=== PATIENT | male | born 1940 | race Native Hawaiian/Other Pacific Islander ===

== ENCOUNTER 2016-10-12 10:57 | Day surgery (SDC) | payer MEDICARE, MEDICAID ==
[2016-10-12 11:32] VITALS: BMI 26.4
--- NOTE | 2016-10-12 11:49 | CP.SDSHP ---
Same Day Surgery H & P - History Proposed Procedure: colonoscopy - Previous Medical/Surgical History Cardiac: Hypertension - Allergies Allergies: Allergies No Known Allergies Allergy (Unverified 12/30/13 14:30) - Date & Time Date: 10/12/16 Time: 11:48 Short Stay Discharge - Short Stay Discharge Admitting Diagnosis/Reason for Visit: SCREENING FOR MALIGNANT NEOPLASM OF COLON Disposition: HOME/ ROUTINE
[2016-10-12] MEDS ORDERED: Propofol 10 mg/ml Inj (20 ML) ONE ×2 (12:13→12:32)
[2016-10-12 13:00] VITALS: TEMP 97.1
[2016-10-12 14:04] VITALS: RESP 12; O2SAT 100
[2016-10-12 14:07] VITALS: BP 122/77; PULSE 78
== END 2016-10-12 13:50 | disposition home or self-care (01) ==
LOC: C.ENDO 10:57
PROVIDERS: ATTEND Colon & Rectal Surgery
DX: Z12.11 Encounter for screening for malignant neoplasm of colon (principal); K62.1 Rectal polyp; K57.30 Diverticulosis of large intestine without perforation or abscess without bleeding; K64.8 Other hemorrhoids
CPT/HCPCS: 45388; 88305; J2704; J3010

== ENCOUNTER 2016-10-16 18:37 | Emergency (ER) | payer MEDICARE, MEDICAID ==
[2016-10-16 18:37] VITALS: BMI 26.4
[2016-10-16 18:55] VITALS: TEMP 98.2
--- NOTE | 2016-10-16 19:30 | C.PDOC ---
History Of Present Illness 76 y/o male presents to the ED with complains of bilateral leg weakness since yesterday with associated lightheadedness and sensation of abdominal fullness after eating. Pt has history of chronic constipation, last BM was today. Pt is s /p colonoscopy 4 days ago. He denies chest pain, SOB, abdominal pain, fever, headache, visual changes, slurred speech, facial droop. Time Seen by Provider: 10/16/16 19:18 Chief Complaint (Nursing): Abdominal Pain History Per: Patient, Family History/Exam Limitations: no limitations Onset/Duration Of Symptoms: Hrs Current Symptoms Are (Timing): Still Present Severity: Moderate Associated Symptoms: denies: Fever, Chest Pain Exacerbating Factors: None Last Bowel Movement: Today Past Medical History Reviewed: Historical Data, Nursing Documentation, Vital Signs Vital Signs: Last Vital Signs Temp 98.2 F 10/16/16 18:51 Pulse 73 10/16/16 23:21 Resp 16 10/16/16 23:21 BP 148/74 10/16/16 23:21 Pulse Ox 100 10/16/16 23:21 - Medical History PMH: HTN, Hyperlipidemia Surgical History: Endoscopy Family History: States: Other (noncontributory) - Social History Hx Alcohol Use: No Hx Substance Use: No - Immunization History Hx Tetanus Toxoid Vaccination: No Hx Influenza Vaccination: Yes Hx Pneumococcal Vaccination: Yes Review Of Systems Except As Marked, All Systems Reviewed And Found Negative. Constitutional: Negative for: Fever Eyes: Negative for: Vision Change Cardiovascular: Negative for: Chest Pain, Palpitations Respiratory: Negative for: Cough, Shortness of Breath Gastrointestinal: Positive for: Other (sensation of abdominal fullness). Negative for: Nausea, Vomiting, Abdominal Pain, Diarrhea Neurological: Positive for: Weakness (bilateral leg), Other (lightheadedness). Negative for: Numbness, Change in Speech, Headache Physical Exam - Physical Exam Appears: Well, Non-toxic, No Acute Distress Skin: Warm, Dry, No Rash Head: Atraumatic, Normacephalic Eye(s): bilateral: Normal Inspection, PERRL, EOMI Oral Mucosa: Moist Cardiovascular: Rhythm Regular Respiratory: Normal Breath Sounds, No Rales, No Rhonchi, No Wheezing Gastrointestinal/Abdominal: Normal Exam, Bowel Sounds, Soft, No Tenderness, No Guarding, No Rebound Extremity: Normal ROM, No Pedal Edema, No Calf Tenderness Extremity: Bilateral: Atraumatic Neurological/Psych: Oriented x3, Normal Speech, Normal Cognition, Normal Cranial Nerves, No Cerebellar Signs, Normal Motor, Normal Sensation ED Course And Treatment - Laboratory Results Result Diagrams: 10/16/16 19:49 10/16/16 19:49 ECG: Interpreted By Me, Viewed By Me (NSR 61 BPM, normal axis, no acute ST/T wave changes) ECG Interpretation: Normal O2 Sat by Pulse Oximetry: 99 (RA) Pulse Ox Interpretation: Normal - Other Rad CXR X-Ray: Viewed By Me, Read By Radiologist Interpretation: Accession No. : [id number]. Patient Name / ID : JOSELINE Hsu / [id number]. Exam Date : 10/16/2016 21:43:30 ( Approved ). Study Comment : Sex / Age : M / 76Y. Creator : Jabier Jimenez MD. Dictator : Jabier iJmenez MD. Wood Borer : Platform Loader : Jabier Jimenez MD. Approver2 : Report Date : 06/2017 08:41:06. My Comment : . PROCEDURE: CHEST RADIOGRAPH, 1 VIEW. HISTORY: WEAKNESS. COMPARISON: None available. FINDINGS: LUNGS: No focal infiltrate or effusion. Curvilinear tubing projects over the right supraclavicle soft tissues. Clinical correlation. PLEURA: No pneumothorax or pleural fluid seen. CARDIOVASCULAR: Calcification at the aortic knob. OSSEOUS STRUCTURES: No significant abnormalities. VISUALIZED UPPER ABDOMEN: Normal. OTHER FINDINGS: None. IMPRESSION: No active disease. - CT Scan/US ct scan abd/pelvis Other Rad Studies (CT/US): Read By Radiologist, Radiology Report Reviewed CT/US Interpretation: Accession No. : [id number]. Patient Name / ID : JOSELINE Hsu / [id number]. Exam Date : 10/16/2016 22:11:06 ( Approved ). Study Comment : Sex / Age : M / 76Y. Creator : Kiki Leonard MD. Dictator : Wood Borer : Platform Loader : Kiki Leonard MD. Approver2 : Report Date : 10/16/2016 23:12:00. My Comment : . [facility]. [address] [place] [address]. Tel. no. . . . Patient Name: VANI TREVIZO . Pt. Address: [address] [place] [address]. Rec #: [id number]. [place] [address]: Rocio Hamm DO Pt Order Location: [facility] : 1940 Male Age: 76 Order #: [id number]. Accession # : [id number]. Reason for exam: ABDOMINAL PAIN. . . . . . CT Scan. . . ABD PELVIS W/O PO OR IV CONT Exam Date: 05/24. . This imaging exam was performed at [facility]. . . EXAM: CT Abdomen and Pelvis Without Intravenous Contrast. . CLINICAL HISTORY: 76 years old, male; Pain; Abdominal pain; Generalized. . TECHNIQUE: Axial computed tomography images of the abdomen and pelvis without. intravenous contrast. This CT exam was performed using one or more of the. following dose reduction techniques: automated exposure control, adjustment of. the mA and/ or kV according to patient size, and/or use of iterative. reconstruction technique. Coronal and sagittal reformatted images were created and reviewed. . EXAM DATE/TIME: 10/16/2016 9:22 PM. . COMPARISON: No relevant prior studies available. . FINDINGS: LOWER THORAX: No infiltrate seen in the lung bases. . ABDOMEN: LIVER: No acute abnormality of the liver identified. GALLBLADDER AND BILE DUCTS: No CT evidence of acute cholecystitis. No. evidence of significant biliary ductal dilatation. PANCREAS: No CT evidence of acute pancreatitis. SPLEEN: No acute abnormality of the spleen identified. ADRENALS: No acute abnormality of the adrenal glands identified. KIDNEYS AND URETERS: No acute abnormality of the kidneys seen. No evidence. of hydroureteronephrosis. STOMACH AND BOWEL: Scattered colonic diverticulosis, without evidence of. diverticulitis. Otherwise, no significant abnormality of the bowel is. identified. No acute abnormality of the stomach or duodenum identified. No. evidence of small bowel obstruction. APPENDIX: Appendix is seen, and is within normal limits in appearance. . PELVIS: BLADDER: Mild thickening of the bladder wall. REPRODUCTIVE: Prostate gland is mildly enlarged. . ABDOMEN and PELVIS: INTRAPERITONEAL SPACE: No evidence of free intraperitoneal air or fluid. BONES/JOINTS: Bony structures appear demineralized. SOFT TISSUES: Postoperative changes involving the periumbilical soft tissues. VASCULATURE: No evidence of abdominal aortic aneurysm. No evidence of. periaortic hemorrhage. LYMPH NODES: No evidence of diffuse lymphadenopathy. . IMPRESSION: - Mild bladder wall thickening. This is a nonspecific finding, but can be seen. with cystitis. Recommend clinical correlation. - Otherwise, no evidence of significant acute process on this unenhanced exam. - See above for remaining findings. . Dictated By: Kiki Leonard MD. Dictated Date/Time: 10/16/162311. Signed By: Kiki Leonard MD. Date Signed: 10/16/162311. Transcribed By: [facility]. Transcribe Date/Time : 10/16/162311. RM02/MT Progress Note: Plan: Blood work, CT abd/pelvis, EKG, UA ordered and reviewed. Reevaluation Time: 23:15 Reassessment Condition: Improved (Patient reassessed, currently resting comfortably, in no pain/distress. All studies are WNL, and patient is well appearing, asymptomatic, and would like to be discharged home. Discussed patient with Dr. Gauthier, he agrees with discharge home. Patient instructed to follow up with Dr. Gauthier in 1-2 days. Patient understands he should return to ED if symptoms worsen.) Disposition Counseled Patient/Family Regarding: Studies Performed, Diagnosis, Need For Followup - Disposition Referrals: Rah Gauthier MD [Staff Provider] - Disposition: HOME/ ROUTINE Disposition Time: 23:15 Condition: STABLE Additional Instructions: FOLLOW UP WITH YOUR DOCTOR IN 1-2 DAYS RETURN TO ER IF YOU HAVE ANY CONCERNING SYMPTOMS Forms: General Discharge Instructions Print Language: IRISH - POA Present On Arrival: None - Clinical Impression Clinical Impression: Leg weakness, Abdominal distension - Scribe Statement The provider has reviewed the documentation as recorded by the Scribe David Tarango Provider Attestation: All medical record entries made by the Merlyibe were at my direction and personally dictated by me. I have reviewed the chart and agree that the record accurately reflects my personal performance of the history, physical exam, medical decision making, and the department course for this patient. I have also personally directed, reviewed, and agree with the discharge instructions and disposition.
[2016-10-16 19:51] LABS: BASO % 0.7 % (0.0-2.0); EOS # 0.3 K/uL (0.0-0.7); EOS % 5.4 % (0.0-4.0); LYMPH # 1.4 K/uL (1.0-4.3); LYMPH % 22.3 % (20.0-40.0); MEAN CELL VOLUME 90.8 fL (80.0-94.0); MEAN CORPUSCULAR HEMOGLOBIN 29.9 pg (27.0-31.0); MEAN CORPUSCULAR HGB CONC 32.9 g/dL (33.0-37.0); MONO # 0.6 K/uL (0.0-0.8); MONO % 9.7 % (0.0-10.0); NRBC % 0.1 % (0.0-2.0); RED CELL DISTRIBUTION WIDTH 13.6 % (11.5-14.5); WHITE BLOOD COUNT 6.1 K/uL (4.8-10.8)
[2016-10-16 19:51] LABS: RBC URINE < 1 /hpf (0-3); URINE BILIRUBIN NEGATIVE (NEGATIVE); URINE BLOOD NEGATIVE (NEGATIVE); URINE COLOR Yellow (YELLOW); URINE GLUCOSE (UA) NORMAL (Normal); URINE KETONE NEGATIVE (NEGATIVE); URINE LEUKOCYTE ESTERASE NEG Leu/uL (Negative); URINE PROTEIN NEGATIVE (NEGATIVE); URINE UROBILINOGEN NORMAL mg/dL (0.2-1.0); WBC URINE < 1 /hpf (0-5)
[2016-10-16 20:03] LABS: CHLORIDE 97 mmol/L (98-107)
[2016-10-16 20:04] LABS: POTASSIUM 4.3 mmol/L (3.6-5.2); SODIUM 137 mmol/L (132-148)
[2016-10-16 20:06] LABS: ALB/GLOB RATIO 1.6 (1.0-2.1); ALKALINE PHOSPHATASE 43 U/L (38-126); AST/SGOT 21 U/L (17-59); BILIRUBIN,TOTAL 0.3 mg/dL (0.2-1.3); BLOOD UREA NITROGEN 9 mg/dL (9-20); CARBON DIOXIDE 27 mmol/L (22-30); GFR AFRICAN-AMERICAN > 60; TOTAL PROTEIN 6.6 g/dL (6.3-8.3)
[2016-10-16 20:07] LABS: ALT/SGPT 21 U/L (21-72); CALCIUM 8.6 mg/dl (8.6-10.4); GLUCOSE,RANDOM 105 mg/dL (75-110)
--- NOTE | 2016-10-16 23:12 | CT ---
EXAM: CT Abdomen and Pelvis Without Intravenous Contrast CLINICAL HISTORY: 76 years old, male; Pain; Abdominal pain; Generalized TECHNIQUE: Axial computed tomography images of the abdomen and pelvis without intravenous contrast. This CT exam was performed using one or more of the following dose reduction techniques: automated exposure control, adjustment of the mA and/or kV according to patient size, and/or use of iterative reconstruction technique. Coronal and sagittal reformatted images were created and reviewed. EXAM DATE/TIME: 10/16/2016 9:22 PM COMPARISON: No relevant prior studies available. FINDINGS: LOWER THORAX: No infiltrate seen in the lung bases. ABDOMEN: LIVER: No acute abnormality of the liver identified. GALLBLADDER AND BILE DUCTS: No CT evidence of acute cholecystitis. No evidence of significant biliary ductal dilatation. PANCREAS: No CT evidence of acute pancreatitis. SPLEEN: No acute abnormality of the spleen identified. ADRENALS: No acute abnormality of the adrenal glands identified. KIDNEYS AND URETERS: No acute abnormality of the kidneys seen. No evidence of hydroureteronephrosis. STOMACH AND BOWEL: Scattered colonic diverticulosis, without evidence of diverticulitis. Otherwise, no significant abnormality of the bowel is identified. No acute abnormality of the stomach or duodenum identified. No evidence of small bowel obstruction. APPENDIX: Appendix is seen, and is within normal limits in appearance. PELVIS: BLADDER: Mild thickening of the bladder wall. REPRODUCTIVE: Prostate gland is mildly enlarged. ABDOMEN and PELVIS: INTRAPERITONEAL SPACE: No evidence of free intraperitoneal air or fluid. BONES/JOINTS: Bony structures appear demineralized. SOFT TISSUES: Postoperative changes involving the periumbilical soft tissues. VASCULATURE: No evidence of abdominal aortic aneurysm. No evidence of periaortic hemorrhage. LYMPH NODES: No evidence of diffuse lymphadenopathy. IMPRESSION: - Mild bladder wall thickening. This is a nonspecific finding, but can be seen with cystitis. Recommend clinical correlation. - Otherwise, no evidence of significant acute process on this unenhanced exam. - See above for remaining findings.
[2016-10-16 23:22] VITALS: BP 148/74; PULSE 73; RESP 16
--- NOTE | 2016-10-17 08:42 | RAD ---
PROCEDURE: CHEST RADIOGRAPH, 1 VIEW HISTORY: WEAKNESS COMPARISON: None available. FINDINGS: LUNGS: No focal infiltrate or effusion. Curvilinear tubing projects over the right supraclavicle soft tissues. Clinical correlation. PLEURA: No pneumothorax or pleural fluid seen. CARDIOVASCULAR: Calcification at the aortic knob. OSSEOUS STRUCTURES: No significant abnormalities. VISUALIZED UPPER ABDOMEN: Normal. OTHER FINDINGS: None. IMPRESSION: No active disease.
--- NOTE | 2016-10-17 14:43 | CARD ---
APPROVED REPORT EKG Measurement Heart [id number] <Conclusion> Normal sinus rhythm Normal ECG
[2016-10-23 07:37] VITALS: O2SAT 99
== END 2016-10-16 23:41 | disposition home or self-care (01) ==
LOC: C.ER 18:37
DX: R14.0 Abdominal distension (gaseous) (principal); R53.1 Weakness

== ENCOUNTER 2017-03-04 11:18 | Inpatient (IN) | payer MEDICARE, MEDICAID ==
[2017-03-04 11:18] VITALS: BMI 26.4
[2017-03-04 12:53] LABS: BASO # 0.1 K/uL (0.0-0.2); EOS # 0.1 K/uL (0.0-0.7); EOS % 1.5 % (0.0-4.0); HEMATOCRIT 47.2 % (35.0-51.0); LYMPH # 1.3 K/uL (1.0-4.3); LYMPH % 18.8 % (20.0-40.0); MEAN CELL VOLUME 90.8 fL (80.0-94.0); MEAN CORPUSCULAR HEMOGLOBIN 30.1 pg (27.0-31.0); MEAN CORPUSCULAR HGB CONC 33.1 g/dL (33.0-37.0); MONO # 0.5 K/uL (0.0-0.8); MONO % 6.3 % (0.0-10.0); NRBC % 0.1 % (0.0-2.0); RED CELL DISTRIBUTION WIDTH 13.6 % (11.5-14.5); WHITE BLOOD COUNT 7.2 K/uL (4.8-10.8)
[2017-03-04 13:03] LABS: CHLORIDE 96 mmol/L (98-107); URINE BILIRUBIN NEGATIVE (NEGATIVE); URINE BLOOD NEGATIVE (NEGATIVE); URINE COLOR Yellow (YELLOW); URINE GLUCOSE (UA) NORMAL (Normal); URINE KETONE NEGATIVE (NEGATIVE); URINE LEUKOCYTE ESTERASE NEG Leu/uL (Negative); URINE PROTEIN NEGATIVE (NEGATIVE); URINE UROBILINOGEN NORMAL mg/dL (0.2-1.0); WBC URINE 1 /hpf (0-5)
[2017-03-04 13:04] LABS: POTASSIUM 4.2 mmol/L (3.6-5.2); SODIUM 137 mmol/L (132-148)
[2017-03-04 13:06] LABS: ALB/GLOB RATIO 1.3 (1.0-2.1); ALKALINE PHOSPHATASE 60 U/L (38-126); ALT/SGPT 29 U/L (21-72); AST/SGOT 23 U/L (17-59); BILIRUBIN,TOTAL 0.7 mg/dL (0.2-1.3); BLOOD UREA NITROGEN 9 mg/dL (9-20); CARBON DIOXIDE 25 mmol/L (22-30); GFR AFRICAN-AMERICAN > 60; INR 0.9; TOTAL PROTEIN 7.4 g/dL (6.3-8.3)
[2017-03-04 13:07] LABS: GLUCOSE,RANDOM 125 mg/dL (75-110)
--- NOTE | 2017-03-04 13:16 | RAD ---
PROCEDURE: Radiographs of the Right Shoulder HISTORY: right shoulder pain COMPARISON: No prior. FINDINGS: BONES: Normal. No fracture. 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 There also appears to be small amount of vacuum phenomena within the left AC joint. SOFT TISSUES: No definitive abnormal soft tissue calcifications. OTHER FINDINGS: Mild multilevel degenerative spondylosis of the thoracic spine. IMPRESSION: No evidence of acute displaced fracture nor dislocation. Mild DJD left acromioclavicular joint; rule out impingement syndrome.
--- NOTE | 2017-03-04 14:40 | RAD ---
PROCEDURE: CHEST RADIOGRAPH, 1 VIEW HISTORY: weakness COMPARISON: 10/16/2016 FINDINGS: LUNGS: Clear. PLEURA: No pneumothorax or pleural fluid seen. CARDIOVASCULAR: Normal. OSSEOUS STRUCTURES: No significant abnormalities. VISUALIZED UPPER ABDOMEN: Normal. OTHER FINDINGS: None. IMPRESSION: No active disease.
--- NOTE | 2017-03-04 15:44 | CT ---
PROCEDURE: CT HEAD WITHOUT CONTRAST. HISTORY: dizziness, leg weakness COMPARISON: None available. TECHNIQUE: Axial computed tomography images were obtained through the head/brain without intravenous contrast. Radiation dose: Total exam DLP = 981.84 mGy-cm. This CT exam was performed using one or more of the following dose reduction techniques: Automated exposure control, adjustment of the mA and/or kV according to patient size, and/or use of iterative reconstruction technique. FINDINGS: HEMORRHAGE: No intracranial hemorrhage. BRAIN: No mass effect or edema. Mild age-appropriate diffuse atrophy. Focal low-attenuation adjacent to frontal horn right lateral ventricle likely chronic ischemic change. No evidence of acute infarct. VENTRICLES: Unremarkable. No hydrocephalus. CALVARIUM: Unremarkable. PARANASAL SINUSES: Unremarkable as visualized. No significant inflammatory changes. MASTOID AIR CELLS: Unremarkable as visualized. No inflammatory changes. OTHER FINDINGS: None. IMPRESSION: No intracranial mass, hemorrhage or evidence of acute infarct. Atrophy and chronic white matter ischemic change.
--- NOTE | 2017-03-04 15:57 | C.PDOC ---
History Of Present Illness 76 year old male presents to the ED for evaluation of right shoulder pain exacerbated by movement that is radiating to the right arm for one week. Patient was sent by Dr. Gauthier after visiting today, states he has been feeling lightheaded and with weakness in bilateral legs over the last 1 week. He has also had several episodes of near syncope. He denies chest pain, shortness of breath, nausea, vomiting, diarrhea, visual changes, facial droop, slurred speech, abdominal pain, sensory changes. Time Seen by Provider: 03/04/17 12:11 Chief Complaint (Nursing): Syncope History Per: Patient History/Exam Limitations: no limitations Onset/Duration Of Symptoms: Days (1 week ) Current Symptoms Are (Timing): Still Present Seizure Or Post-ictal Symptoms: None Fall Associated With With Symptoms: No Recent travel outside of the [place]: No Additional History Per: Prior Records (PMD Dr. Gauthier ) Past Medical History Reviewed: Historical Data, Nursing Documentation, Vital Signs Vital Signs: Last Vital Signs Temp 97.8 F 03/06/17 15:55 Pulse 65 03/06/17 15:55 Resp 18 03/06/17 15:55 BP 130/78 03/06/17 15:55 Pulse Ox 99 03/06/17 15:55 - Medical History PMH: HTN, Hyperlipidemia Surgical History: Endoscopy Family History: States: No Known Family Hx - Social History Hx Alcohol Use: No Hx Substance Use: No - Immunization History Hx Tetanus Toxoid Vaccination: No Hx Influenza Vaccination: No Hx Pneumococcal Vaccination: No Review Of Systems Except As Marked, All Systems Reviewed And Found Negative. Constitutional: Negative for: Fever, Chills Cardiovascular: Negative for: Chest Pain, Palpitations Respiratory: Negative for: Cough, Shortness of Breath Gastrointestinal: Negative for: Nausea, Vomiting, Abdominal Pain, Diarrhea Musculoskeletal: Positive for: Shoulder Pain (right), Arm Pain (right arm pain radiating from right shoulder ), Leg Pain (bilateral leg weakness occasionally ) Neurological: Positive for: Other (lightheadedness ). Negative for: Weakness, Numbness Physical Exam - Physical Exam Appears: Well, Non-toxic, No Acute Distress, Other (comfortable ) Skin: Normal Color, Warm, Dry, No Rash Head: Atraumatic, Normacephalic Eye(s): bilateral: Normal Inspection (no nystagmus ), PERRL, EOMI Oral Mucosa: Moist Neck: Supple Cardiovascular: Rhythm Regular Respiratory: Normal Breath Sounds, No Rales, No Rhonchi, No Wheezing Gastrointestinal/Abdominal: Normal Exam, Bowel Sounds, Soft, No Tenderness Extremity: No Normal ROM (decreased ROM secondary to pain), Tenderness ( tenderness to palpation at right posterior shoulder. ), No Pedal Edema, No Calf Tenderness, Capillary Refill (< 2 sec all digits ), No Deformity, No Swelling, Other (5/5 motor strength in all extremities ) Extremity: Bilateral: Normal Color And Temperature, Normal ROM Pulses: Left Radial: Normal, Right Radial: Normal, Left Dorsalis Pedis: Normal, Right Dorsalis Pedis: Normal Neurological/Psych: Oriented x3, Normal Speech, Normal Cognition, Normal Cranial Nerves, No Cerebellar Signs, Normal Motor, Normal Sensation, No Dysarthria, No Romberg ED Course And Treatment - Laboratory Results Result Diagrams: 03/04/17 12:50 03/04/17 12:50 ECG: Interpreted By Me, Viewed By Me ECG Rhythm: Sinus Rhythm ECG Interpretation: No Acute Changes Interpretation Of ECG: First degree AV block, normal axis, no acute ST/T wave changes. Rate From EC (bpm) O2 Sat by Pulse Oximetry: 99 (room air ) Pulse Ox Interpretation: Normal - Radiology CXR: Viewed By Me, Read By Radiologist CXR Interpretation: Yes: No Acute Disease - Other Rad Right Shoulder X-Ray X-Ray: Viewed By Me, Read By Radiologist Interpretation: FINDINGS: BONES: Normal. No fracture. 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 There also appears to be small amount of vacuum phenomena within the left AC joint. SOFT TISSUES: No definitive abnormal soft tissue calcifications. OTHER FINDINGS: Mild multilevel degenerative spondylosis of the thoracic spine. IMPRESSION: No evidence of acute displaced fracture nor dislocation. Mild DJD left acromioclavicular joint; rule out impingement syndrome. - CT Scan/US CT HEAD Other Rad Studies (CT/US): Read By Radiologist, Radiology Report Reviewed CT/US Interpretation: Accession No. : [id number]. Patient Name / ID : JOSELINE Hsu / [id number]. Exam Date : 03/04/2017 15:13:02 ( Approved ). Study Comment : Sex / Age : M / 76Y. Creator : CR MARIN MD. Dictator : CR MARIN MD. Cell Attendant Helper : Rn Gyn : CR MARIN MD. Approver2 : Report Date : 03/04/2017 15:42:33. My Comment : . PROCEDURE: CT HEAD WITHOUT CONTRAST. HISTORY: dizziness, leg weakness. COMPARISON: None available. TECHNIQUE: Axial computed tomography images were obtained through the head/brain without intravenous contrast. Radiation dose: Total exam DLP = 981.84 mGy-cm. This CT exam was performed using one or more of the following dose reduction techniques: Automated exposure control, adjustment of the mA and/or kV according to patient size, and/or use of iterative reconstruction technique. FINDINGS: HEMORRHAGE: No intracranial hemorrhage. BRAIN: No mass effect or edema. Mild age-appropriate diffuse atrophy. Focal low-attenuation adjacent to frontal horn right lateral ventricle likely chronic ischemic change. No evidence of acute infarct. VENTRICLES: Unremarkable. No hydrocephalus. CALVARIUM: Unremarkable. PARANASAL SINUSES: Unremarkable as visualized. No significant inflammatory changes. MASTOID AIR CELLS: Unremarkable as visualized. No inflammatory changes. OTHER FINDINGS: None. IMPRESSION: No intracranial mass, hemorrhage or evidence of acute infarct. Atrophy and chronic white matter ischemic change. Progress Note: Blood work, EKG, CT head ordered and reviewed. Patient given PO Naprosyn, Flexeril for shoulder pain. - Physician Consult Information Physician Contacted: Rah Gauthier Outcome Of Conversation: Discussed patient with PMD Dr. gauthier, he would like patient to be observation telemetry Disposition - Disposition Disposition: HOSPITALIZED Disposition Time: 14:55 Condition: STABLE - Clinical Impression Clinical Impression: Right shoulder pain, Leg weakness, Near syncope, Dizziness, Lightheaded - Scribe Statement The provider has reviewed the documentation as recorded by the Scribchan Anna All medical record entries made by the Scribe were at my direction and personally dictated by me. I have reviewed the chart and agree that the record accurately reflects my personal performance of the history, physical exam, medical decision making, and the department course for this patient. I have also personally directed, reviewed, and agree with the discharge instructions and disposition. Decision To Admit - Pt Status Changed To: Hospital Disposition Of: Observation - . Bed Request Type: Telemetry Admitting Physician: Rah Gauthier Patient Diagnosis: Near syncope, Dizziness, Leg weakness, Right shoulder pain
[2017-03-04] MEDS ORDERED: Naproxen 550 mg Tab PO STA (17:03)
[2017-03-04] MEDS ORDERED: Naproxen 550 mg Tab PO ONE (17:10)
[2017-03-04] MEDS: Simethicone 80 mg Chewtab PO SCH (19:27)
--- NOTE | 2017-03-05 09:02 | MRI ---
PROCEDURE: MRI BRAIN WITHOUT CONTRAST HISTORY: DIZZINESS` COMPARISON: Comparison is made to the previous CT dated 03/04/2017. TECHNIQUE: Multiplanar, multisequence MR images of the brain were obtained without intravenous contrast enhancement. FINDINGS: HEMORRHAGE: None DWI: No evidence of an acute or early subacute infarction. BRAIN PARENCHYMA: No mass effect or edema. There are mild white matter changes suggestive but nonspecific for chronic microvascular ischemic disease. There is [id number] atrophy. VENTRICLES: Mildly dilated lateral ventricles posteriorly. CRANIUM: Unremarkable. ORBITS: Grossly unremarkable. PARANASAL SINUSES/MASTOIDS: Clear VASCULAR SYSTEM: Skull base flow voids intact. OTHER FINDINGS: None. IMPRESSION: O evidence of acute or subacute infarction. No evidence of mass lesion mass effect or midline shift. Mild white matter changes suggestive but nonspecific for chronic microvascular ischemic disease. Dilated posterior horn of the lateral ventricles could be due to central atrophy. Preliminary report was submitted by [facility].
[2017-03-05] MEDS: Pantoprazole 40 mg EC Tab PO SCH (10:21)
[2017-03-05] MEDS: Simethicone 80 mg Chewtab PO SCH ×3 (10:21→18:29)
[2017-03-05] MEDS: Multivitamin With Minerals Tab PO SCH (10:21)
[2017-03-05] MEDS: Enoxaparin 40 mg Syringe SC SCH (10:21)
--- NOTE | 2017-03-05 17:57 | CARD ---
APPROVED REPORT EXAM: Two-dimensional and M-mode echocardiogram with Doppler and color Doppler. Other Information Quality : GoodRhythm : NSR INDICATION Dizziness and Vertigo Syncope RISK FACTORS Hypertension Hyperlipidemia 2D DIMENSIONS IVSd1.3 (0.7-1.1cm)LVDd3.4 (3.9-5.9cm) PWd1.3 (0.7-1.1cm)LVDs2.5 (2.5-4.0cm) FS (%) 26.3 %LVEF (%)59.0 (>50%) M-Mode DIMENSIONS Left Atrium (MM)3.55 (2.5-4.0cm)Aortic Root4.17 (2.2-3.7cm) Aortic Cusp Exc.2.71 (1.5-2.0cm) Aortic Valve AI P 1/2 [id number] Mitral Valve MV E Zjaclbwa31.5cm/sMV A Rmmnjqny05.4cm/sE/A ratio0.7 TDI E/Lateral E'0.0E/Medial E'0.0 Tricuspid Valve TR Peak Bdcjuany919nh/sTR Peak Gr.47haSaZLWG84bzSn LEFT VENTRICLE The left ventricle is normal size. There is normal left ventricular wall thickness. The left ventricular function is normal. The left ventricular ejection fraction is within the normal range. There is normal LV segmental wall motion. Transmitral Doppler flow pattern is abnormal. RIGHT VENTRICLE The right ventricle is normal size. ATRIA The left atrium size is normal. The right atrium size is normal. AORTIC VALVE There is trace to mild aortic regurgitation. MITRAL VALVE The mitral valve is normal in structure. TRICUSPID VALVE There is mild tricuspid regurgitation. <Conclusion> Normal LV systolic function. Diastolic dysfunction. Trace to mild AR. Mild TR.
[2017-03-05] MEDS ORDERED: Rosuvastatin Calcium 2.5 mg Tab PO SCH (22:00)
--- NOTE | 2017-03-06 02:54 | HP ---
CHIEF COMPLAINT: Dizziness and weakness. HISTORY OF PRESENT ILLNESS: This is 76-year-old [place] male with history of hypertension, hyperlipidemia, osteoarthritis, anxiety and in his usual state of health, he is ambulatory, independent in activities of daily living. He is compliant with his thyroid medication and followup. He has multiple joint pains in multiple parts of the body including shoulder, hip, knee. Yesterday, he came to my office and I referred him to emergency room. He was complaining of lightheadedness, weakness, bilateral lower extremity, which has been there since one week and that has been getting worse. He is unsteady. He feels dizzy. He is having hard time maintaining balance. He denies any chest pain, palpitation. He denies any . He denies any history of shortness of breath, dyspnea on exertion. Patient denies any nausea, vomiting, diarrhea, abdominal pain. He denies any polyuria, polydipsia. He denies any visual changes. No history of slurring of speech. No abdominal pain. There is no history of head injury, trauma, fall, loss of consciousness. He denies any history of hesitancy, urgency. PAST MEDICAL HISTORY: Hypertension, hyperlipidemia, extensive osteoarthritis. SOCIAL HISTORY: Nonsmoker, non ETOH user. CURRENT MEDICATIONS AT HOME: He is taking enalapril, simethicone, Protonix, multivitamin, Amitiza, Neurontin, Vasotec. PHYSICAL EXAMINATION: GENERAL: An elderly male in no distress. He is anxious. He is depressed. VITAL SIGNS: Blood pressure 147/86, pulse 70, respiratory rate 16, temperature 97.6. SKIN: Senile turgor. No bruises. No purpura. No petechiae. HEENT: Atraumatic and normocephalic. Negative pallor. Negative jaundice. Extraocular movements are intact. NECK: Supple. No JVD. LUNGS: Clear. No rales. No rhonchi. CARDIOVASCULAR: S1 and S2 regular. No heaves noted. ABDOMEN: Soft and nontender. Bowel sounds are positive. RECTAL: Enlarged prostate. EXTREMITIES: No clubbing, cyanosis or edema. CENTRAL NERVOUS SYSTEM: Awake, alert and oriented x3. He is moving all extremities. He is unsteady upon gait. ASSESSMENT AND PLAN: 1. Dizziness and syncope. 2. Anxiety and depression. 3. Hypertension. 4. Osteoarthritis. 5. Admit, detailed order written, seen and examined. Rah Gauthier MD
[2017-03-06] MEDS: Enoxaparin 40 mg Syringe SC SCH (09:54)
[2017-03-06] MEDS: Simethicone 80 mg Chewtab PO SCH ×3 (09:55→17:38)
[2017-03-06] MEDS: Multivitamin With Minerals Tab PO SCH (09:55)
--- NOTE | 2017-03-06 09:59 | VASCLAB ---
PROCEDURE: HISTORY: DIZZINESS` COMPARISON: None available. TECHNIQUE: Grayscale and duplex Doppler evaluation of the cervical carotid and vertebral arteries were performed. The common carotid, carotid bifurcations and cervical Internal Carotid Artery (ICA) and proximal External Carotid Artery (ECA) were evaluated. The vertebral arteries were evaluated for gross patency and flow direction. Report prepared by GUI Valencia FINDINGS: RIGHT CAROTID ARTERIES: 1. Common Carotid Artery: No significant focal plaque formation of the right common carotid artery. Maximum Peak Systolic velocity: 100 cm/sec: End-diastolic velocity 11 cm/sec. 2. Carotid Bifurcation: plaque formation. Maximum Peak Systolic velocity: 32 cm/sec: End-diastolic velocity 0 cm/sec. 3. Internal Carotid Artery: Plaque description: 3.1. Proximal Segment: Peak systolic velocity 65 cm/sec: End-diastolic velocity 18 cm/sec - % stenosis 0-15% 3.2. Middle Segment: Peak systolic velocity 72 cm/sec: End-diastolic velocity 18 cm/sec - % stenosis 0-15% 3.3. Distal Segment: Peak systolic velocity 85 cm/sec: End-diastolic velocity 22 cm/sec - % stenosis 0-15% 4. External Carotid Artery: No significant focal plaque formation. Peak systolic velocity 103 cm/sec 5. ICA/CCA Ratio: 1.2 LEFT CAROTID ARTERIES: 1. Common Carotid Artery: No significant focal plaque formation of the left common carotid artery. Maximum Peak Systolic velocity: 97 cm/sec: End-diastolic velocity 15 cm/sec. 2. Carotid Bifurcation: plaque formation. Maximum Peak Systolic velocity: 68 cm/sec: End-diastolic velocity 14 cm/sec. 3. Internal Carotid Artery: Plaque description: 3.1. Proximal Segment: Peak systolic velocity 65 cm/sec: End-diastolic velocity 21 cm/sec - % stenosis 0-15% 3.2. Middle Segment: Peak systolic velocity 79 cm/sec: End-diastolic velocity 18 cm/sec - % stenosis 0-15% 3.3. Distal Segment: Peak systolic velocity 70 cm/sec: End-diastolic velocity 26 cm/sec - % stenosis 0-15% 4. External Carotid Artery: No significant focal plaque formation. Peak systolic velocity 78 cm/sec 5. ICA/CCA Ratio: VERTEBRAL ARTERIES: 1. Right Vertebral Artery: The right vertebral artery flow direction is antegrade. 2. Left Vertebral Artery: The left vertebral artery flow direction is antegrade. OTHER FINDINGS: 1. Right Brachial Blood pressure: 105 mmHg. 2. Left Brachial Blood pressure: 100 mmHg. IMPRESSION: RIGHT: Duplex scan does not suggest hemodynamically significant stenosis of the right extracranial carotid arteries. LEFT: Duplex scan does not suggest hemodynamically significant stenosis of the left extracranial carotid arteries.
[2017-03-06] MEDS ORDERED: Pneumococcal 23-Valent Vaccine IM ONE (10:00)
[2017-03-06] MEDS: Pantoprazole 40 mg EC Tab PO SCH (10:05)
--- NOTE | 2017-03-06 11:46 | CARD ---
APPROVED REPORT EKG Measurement Heart [id number] <Conclusion> Sinus rhythm with 1st degree AV block Otherwise normal ECG
--- NOTE | 2017-03-06 15:28 | CP.PCM.PN ---
Subjective - Date & Time of Evaluation Date of Evaluation: 03/06/17 Time of Evaluation: 12:00 - Subjective Subjective: Pt seen today, denies any dizziness , head ache , chest pain, sob , c/o weakness Physical therapy seen today pt walks 200 ft without assistance, without any issues No overnight events reported by RN Objective - Vital Signs/Intake and Output Vital Signs (last 24 hours): Temp Pulse Resp BP Pulse Ox 97.9 F 70 20 148/77 96 03/06/17 08:31 03/06/17 09:53 03/06/17 08:31 03/06/17 09:54 03/06/17 08:31 Intake and Output: 03/06/17 03/06/17 06:59 18:59 Intake Total 400 Balance 400 - Medications Medications: Current Medications Enalapril Maleate (Vasotec) 10 mg PO DAILY [facility] Last Admin: 03/06/17 09:54 Dose: 10 mg Enoxaparin Sodium (Lovenox) 40 mg SC DAILY [facility] Last Admin: 03/06/17 09:54 Dose: 40 mg Gabapentin (Neurontin) 100 mg PO BID [facility] Last Admin: 03/06/17 09:55 Dose: 100 mg Magnesium Hydroxide (Milk Of Magnesia) 30 ml PO DAILY PRN PRN Reason: Constipation Multivitamins/Minerals (Therapeutic-M Tab) 1 tab PO DAILY [facility] Last Admin: 03/06/17 09:55 Dose: 1 tab Pantoprazole Sodium (Protonix Ec Tab) 40 mg PO DAILY [facility] Last Admin: 03/06/17 10:05 Dose: 40 mg Rosuvastatin Calcium (Crestor) 2.5 mg PO HS [facility] Last Admin: 03/05/17 21:24 Dose: 2.5 mg Simethicone (Mylicon Chew Tab) 80 mg PO TID [facility] Last Admin: 03/06/17 14:20 Dose: 80 mg - Labs Labs: PT 10.3 SECONDS (9.7-12.2) 03/04/17 12:50 INR 0.9 03/04/17 12:50 APTT 37 SECONDS (21-34) H 03/04/17 12:50 - Constitutional Appears: Well, No Acute Distress - Respiratory Exam Respiratory Exam: Clear to Ausculation Bilateral, NORMAL BREATHING PATTERN - Cardiovascular Exam Cardiovascular Exam: REGULAR RHYTHM, +S1, +S2 - Neurological Exam Neurological Exam: Alert, Awake, Oriented x3 Assessment and Plan - Assessment and Plan (Free Text) Assessment: A/P 76 YR OLD MALE ADMITTED FOR DIZZINESS/SYNCOPE AND WEAKNESS evidence of acute or subacute infarction. MRI head - No evidence of mass lesion mass effect or midline shift. Mild white matter changes suggestive but nonspecific for chronic microvascular ischemic disease. Dilated posterior horn of the lateral ventricles could be due to central atrophy. d/w Dr. Gauthier, stable for discharge home today and f/u with Dr. Gauthier office in 1 week discharge plan discussed with patient, who understands and agrees with plan VNA service evaluated for home physical therapy and not a candidate since pt walks independently RX given for outpt Physical therapy
[2017-03-06 16:00] VITALS: BP 130/78; PULSE 65; RESP 18; TEMP 97.8; O2SAT 99
--- NOTE | 2017-03-06 23:34 | CP.PCM.PN ---
Subjective - Date & Time of Evaluation Date of Evaluation: 03/05/17 - Subjective Subjective: feels weak, unsteady and wants RACHELL, no fever, no sob, no chest pain Objective - Vital Signs/Intake and Output Vital Signs (last 24 hours): Temp Pulse Resp BP Pulse Ox 97.8 F 65 18 130/78 99 03/06/17 15:55 03/06/17 15:55 03/06/17 15:55 03/06/17 15:55 03/06/17 15:55 Intake and Output: 03/06/17 03/07/17 18:59 06:59 Intake Total 500 Balance 500 - Labs Labs: PT 10.3 SECONDS (9.7-12.2) 03/04/17 12:50 INR 0.9 03/04/17 12:50 APTT 37 SECONDS (21-34) H 03/04/17 12:50 - Constitutional Appears: Non-toxic, No Acute Distress - Eye Exam Eye Exam: EOMI, Normal appearance, PERRL Pupil Exam: NORMAL ACCOMODATION - ENT Exam ENT Exam: Mucous Membranes Moist, Normal Exam, Normal Oropharynx, TM's Normal Bilaterally - Neck Exam Neck Exam: Normal Inspection - Cardiovascular Exam Cardiovascular Exam: REGULAR RHYTHM, +S1, +S2 - GI/Abdominal Exam GI & Abdominal Exam: Soft, Normal Bowel Sounds - Rectal Exam Rectal Exam: NORMAL INSPECTION - Extremities Exam Extremities Exam: Normal Capillary Refill, Normal Inspection - Neurological Exam Neurological Exam: Abnormal Gait, Alert, Awake, CN II-XII Intact Neuro motor strength exam: Left Upper Extremity: 5, Right Upper Extremity: 5, Left Lower Extremity: 5, Right Lower Extremity: 5 Assessment and Plan (1) Near syncope Assessment & Plan: NO CHEST PAIN, NO SOB Status: Acute (2) Hypertension Status: Chronic (3) Osteoarthritis Status: Chronic
--- NOTE | 2017-03-06 23:36 | CP.PCM.DIS ---
Provider - Provider Date of Admission: 03/05/17 14:36 Attending physician: Rah Gauthier MD Diagnosis - Discharge Diagnosis (1) Near syncope Status: Acute (2) Hypertension Status: Chronic (3) Osteoarthritis Status: Chronic Hospital Course - Lab Results Lab Results: Most Recent Lab Values WBC 7.2 K/uL (4.8-10.8) 03/04/17 12:50 RBC 5.20 Mil/uL (4.40-5.90) 03/04/17 12:50 Hgb 15.6 g/dL (12.0-18.0) 03/04/17 12:50 Hct 47.2 % (35.0-51.0) 03/04/17 12:50 MCV 90.8 fL (80.0-94.0) 03/04/17 12:50 MCH 30.1 pg (27.0-31.0) 03/04/17 12:50 MCHC 33.1 g/dL (33.0-37.0) 03/04/17 12:50 RDW 13.6 % (11.5-14.5) 03/04/17 12:50 Plt Count 235 K/uL (130-400) 03/04/17 12:50 MPV 9.0 fL (7.2-11.7) 03/04/17 12:50 Neut % (Auto) 72.4 % (50.0-75.0) 03/04/17 12:50 Lymph % (Auto) 18.8 % (20.0-40.0) L 03/04/17 12:50 [place] % (Auto) 6.3 % (0.0-10.0) 03/04/17 12:50 Eos % (Auto) 1.5 % (0.0-4.0) 03/04/17 12:50 Baso % (Auto) 1.0 % (0.0-2.0) 03/04/17 12:50 Neut # 5.2 K/uL (1.8-7.0) 03/04/17 12:50 Lymph # 1.3 K/uL (1.0-4.3) 03/04/17 12:50 [place] # 0.5 K/uL (0.0-0.8) 03/04/17 12:50 Eos # 0.1 K/uL (0.0-0.7) 03/04/17 12:50 Baso # 0.1 K/uL (0.0-0.2) 03/04/17 12:50 PT 10.3 SECONDS (9.7-12.2) 03/04/17 12:50 INR 0.9 03/04/17 12:50 APTT 37 SECONDS (21-34) H 03/04/17 12:50 Sodium 137 mmol/L (132-148) 03/04/17 12:50 Potassium 4.2 mmol/L (3.6-5.2) 03/04/17 12:50 Chloride 96 mmol/L (98-107) L 03/04/17 12:50 Carbon Dioxide 25 mmol/L (22-30) 03/04/17 12:50 Anion Gap 20 (10-20) 03/04/17 12:50 BUN 9 mg/dL (9-20) 03/04/17 12:50 Creatinine 0.7 MG/DL (0.8-1.5) L 03/04/17 12:50 Est GFR ( Amer) > 60 03/04/17 12:50 Est GFR (Non-Af Amer) > 60 03/04/17 12:50 POC Glucose (mg/dL) 122 mg/dL (65-110) H 03/05/17 21:07 Random Glucose 125 mg/dL (75-110) H 03/04/17 12:50 Calcium 10.0 mg/dl (8.6-10.4) 03/04/17 12:50 Total Bilirubin 0.7 mg/dL (0.2-1.3) 03/04/17 12:50 AST 23 U/L (17-59) 03/04/17 12:50 ALT 29 U/L (21-72) 03/04/17 12:50 Alkaline Phosphatase 60 U/L (38-126) 03/04/17 12:50 Total Creatine Kinase 81 U/L (55-170) 03/04/17 12:50 CK-MB (Mass) 1.49 ng/mL (0.0-3.38) 03/04/17 12:50 Troponin I < 0.0120 ng/mL (0.00-0.120) 03/04/17 12:50 Total Protein 7.4 g/dL (6.3-8.3) 03/04/17 12:50 Albumin 4.2 g/dL (3.5-5.0) 03/04/17 12:50 Globulin 3.2 gm/dL (2.2-3.9) 03/04/17 12:50 Albumin/Globulin Ratio 1.3 (1.0-2.1) 03/04/17 12:50 Urine Color Yellow (YELLOW) 03/04/17 12:50 Urine Clarity Clear (Clear) 03/04/17 12:50 Urine pH 7.0 (5.0-8.0) 03/04/17 12:50 Ur Specific [place] 1.008 (1.003-1.030) 03/04/17 12:50 Urine Protein Negative mg/dL (NEGATIVE) 03/04/17 12:50 Urine Glucose (UA) Normal mg/dL (Normal) 03/04/17 12:50 Urine Ketones Negative mg/dL (NEGATIVE) 03/04/17 12:50 Urine Blood Negative (NEGATIVE) 03/04/17 12:50 Urine Nitrate Negative (NEGATIVE) 03/04/17 12:50 Urine Bilirubin Negative (NEGATIVE) 03/04/17 12:50 Urine Urobilinogen Normal mg/dL (0.2-1.0) 03/04/17 12:50 Ur Leukocyte Esterase Neg [place]/uL (Negative) 03/04/17 12:50 Urine WBC (Auto) 1 /hpf (0-5) 03/04/17 12:50 - Hospital Course Hospital Course: ADMITTED WITH DIZZINESS, NEAR SYNCOPE, NO FEVER, NO SOB, AND WAS STARTED ON NUEROCHECK AND MRI BRAIN - Discharge Exam - Head Exam Head Exam: ATRAUMATIC, NORMAL INSPECTION, NORMOCEPHALIC - Eye Exam Eye Exam: EOMI, Normal appearance, PERRL Pupil Exam: NORMAL ACCOMODATION - ENT Exam ENT Exam: Mucous Membranes Moist, Normal Exam, Normal Oropharynx, TM's Normal Bilaterally - Neck Exam Neck exam: Normal Inspection - Respiratory Exam Respiratory Exam: NORMAL BREATHING PATTERN - Cardiovascular Exam Cardiovascular Exam: REGULAR RHYTHM, +S1, +S2 - GI/Abdominal Exam GI & Abdominal Exam: Normal Bowel Sounds, Unremarkable - Rectal Exam Rectal Exam: NORMAL INSPECTION - Neurological Exam Neurological exam: Abnormal Gait, Alert, CN II-XII Intact, Oriented x3, Reflexes Normal - Psychiatric Exam Psychiatric exam: Anxious, Depressed, Flat Affect - Skin Skin Exam: Intact Discharge Plan - Follow Up Plan Condition: GOOD Disposition: HOME/ ROUTINE Instructions: Heart Healthy Diet (DC), Syncope (DC), Dizziness (GEN) Additional Instructions: VNA SERVICE FOR HOME PT Please f/u with Dr. Gauthier office in 1 week continue medication as per Med. Rec. Referrals: Rah Gauthier MD [Staff Provider] -
[2017-03-07] MEDS ORDERED: Magnesium Hydroxide Susp 30 ml UD PO PRN (08:11)
[2017-03-07] MEDS ORDERED: Magnesium Hydroxide Susp 30 ml UD PO SCH (10:00)
== END 2017-03-06 17:40 | disposition home or self-care (01) | DRG 312 ==
LOC: C.ER 11:18 → C.9E 14:55 → C.6T 20:45 → OBSVTOIN 03-05 14:36
PROVIDERS: ADMIT Internal Medicine; ATTEND Internal Medicine
DX: R55 Syncope and collapse (principal); I10 Essential (primary) hypertension; F32.9 Major depressive disorder, single episode, unspecified; E78.5 Hyperlipidemia, unspecified; F41.9 Anxiety disorder, unspecified; M19.011 Primary osteoarthritis, right shoulder

== ENCOUNTER 2018-04-10 08:20 | Observation (INO) | payer MEDICARE, MEDICAID ==
[2018-04-10 08:24] VITALS: BMI 25.2
--- NOTE | 2018-04-10 08:51 | C.PDOC ---
History Of Present Illness 77 y/o male, with PMHx of HTN, and hypercholesterolemia, is sent to ED by PMD for evaluation of repeated episodes of near-syncope and dizziness for the last few days. Pt reports intermittent episodes of dizziness described as room-sp inning sensation, and worse when standing up from a sitting position. Pt notes episode of dizziness lasts for about 2-3 minutes, notes last episode was 2 days ago. He denies dizziness at this time. Denies history of CVA and UT. Otherwise, denies nausea, vomiting, visual changes, neck pain, headache,weakness, numbness, chest pain, shortness of breath, fever, or chills. PMD: Rah Gauthier Time Seen by Provider: 04/10/18 08:35 Chief Complaint (Nursing): Dizziness/Lightheaded History Per: Patient, Family History/Exam Limitations: no limitations Onset/Duration Of Symptoms: Days, Intermittent Episodes Current Symptoms Are (Timing): Still Present Activity At Onset Of Symptoms: Standing Recent travel outside of the [place]: No Additional History Per: Patient Past Medical History Reviewed: Historical Data, Nursing Documentation, Vital Signs Vital Signs: Last Vital Signs Temp 98.3 F 04/10/18 08:27 Pulse 67 04/10/18 08:27 Resp 17 04/10/18 08:27 BP 161/78 H 04/10/18 08:27 Pulse Ox 97 04/10/18 08:27 - Medical History PMH: Anxiety, HTN, Hypercholesterolemia, Hyperlipidemia Surgical History: Endoscopy Family History: States: Unknown Family Hx - Social History Hx Alcohol Use: No Hx Substance Use: No - Immunization History Hx Tetanus Toxoid Vaccination: No Hx Influenza Vaccination: Yes (2017) Hx Pneumococcal Vaccination: No Review Of Systems Except As Marked, All Systems Reviewed And Found Negative. Constitutional: Negative for: Fever, Chills Cardiovascular: Negative for: Chest Pain, Palpitations Respiratory: Negative for: Cough, Shortness of Breath Gastrointestinal: Negative for: Nausea, Vomiting Neurological: Positive for: Dizziness. Negative for: Weakness, Numbness, Change in Speech, Headache Physical Exam - Physical Exam Appears: Non-toxic, No Acute Distress Skin: Normal Color, Warm, Dry Head: Atraumatic, Normacephalic Eye(s): bilateral: Normal Inspection Oral Mucosa: Moist Neck: Normal ROM, Supple Chest: Symmetrical Cardiovascular: Rhythm Regular, No Murmur Respiratory: Normal Breath Sounds, No Rales, No Rhonchi, No Wheezing Gastrointestinal/Abdominal: Soft, No Tenderness, No Guarding, No Rebound Back: Normal Inspection, No CVA Tenderness Extremity: Normal ROM, No Pedal Edema, No Deformity Neurological/Psych: Oriented x3, Normal Speech, Normal Cognition, No Other (no focal deficits) Additional Physical Exam Comments: During physical examination, pt complained of hard stool, but he admits to frequent history of constipation. ED Course And Treatment - Laboratory Results Result Diagrams: 04/10/18 09:19 04/10/18 09:19 ECG: Interpreted By Me, Viewed By Me ECG Rhythm: Sinus Rhythm ECG Interpretation: No Acute Changes Interpretation Of ECG: First degree AV block. Multiple PVCs. Rate From EC (bpm) O2 Sat by Pulse Oximetry: 97 (RA) Pulse Ox Interpretation: Normal Medical Decision Making Medical Decision Making: Plan: * Blood work * Urinalysis * CXR * EKG Discussed with Dr. Gauthier, request tele Obs, Disposition Discussed With .: Rah Gauthier - Disposition Disposition: HOSPITALIZED Disposition Time: 10:29 Condition: GUARDED Forms: [facility] ([employer]) - Clinical Impression Clinical Impression: Dizziness, Syncope - Scribe Statement The provider has reviewed the documentation as recorded by the Scribe KP All medical record entries made by the Scribe were at my direction and personally dictated by me. I have reviewed the chart and agree that the record accurately reflects my personal performance of the history, physical exam, medical decision making, and the department course for this patient. I have also personally directed, reviewed, and agree with the discharge instructions and disposition. Decision To Admit - Pt Status Changed To: Hospital Disposition Of: Observation - . Bed Request Type: Telemetry Admitting Physician: Rha Gauthier Patient Diagnosis: Dizziness, Syncope
[2018-04-10 09:23] LABS: BASO % 0.6 % (0.0-2.0); EOS # 0.3 K/uL (0.0-0.7); EOS % 5.3 % (0.0-4.0); HEMOGLOBIN 14.2 g/dL (12.0-18.0); LYMPH # 0.9 K/uL (1.0-4.3); LYMPH % 13.9 % (20.0-40.0); MEAN CELL VOLUME 91.3 fL (80.0-94.0); MEAN PLATELET VOLUME 7.7 fL (7.2-11.7); MONO # 0.6 K/uL (0.0-0.8); MONO % 8.7 % (0.0-10.0); NEUT # 4.6 K/uL (1.8-7.0); NEUT % 71.5 % (50.0-75.0); RBC 4.57 Mil/uL (4.40-5.90); RED CELL DISTRIBUTION WIDTH 13.5 % (11.5-14.5); WHITE BLOOD COUNT 6.4 K/uL (4.8-10.8)
[2018-04-10 09:36] LABS: ALB/GLOB RATIO 1.5 (1.0-2.1); ALBUMIN 3.9 g/dL (3.5-5.0); ALT/SGPT 27 U/L (21-72); AST/SGOT 15 U/L (17-59); BLOOD UREA NITROGEN 9 mg/dL (9-20); CALCIUM 9.4 mg/dl (8.6-10.4); GFR NON-AFRICAN AMERICAN > 60
[2018-04-10 09:48] LABS: B-TYPE NATRIURETIC PEPTIDE 78.4 pg/mL (0-900)
[2018-04-10] MEDS ORDERED: Sodium Chloride 0.9% 1,000 ML IV SCH (10:45)
[2018-04-10 11:00] LABS: URINE BILIRUBIN NEGATIVE (NEGATIVE); URINE BLOOD NEGATIVE (NEGATIVE); URINE CLARITY Clear (Clear); URINE COLOR Yellow (YELLOW); URINE GLUCOSE (UA) NORMAL (Normal); URINE LEUKOCYTE ESTERASE NEG Leu/uL (Negative); URINE PROTEIN NEGATIVE (NEGATIVE); URINE UROBILINOGEN NORMAL mg/dL (0.2-1.0)
--- NOTE | 2018-04-10 12:25 | RAD ---
Date of service: 04/10/2018 PROCEDURE: CHEST RADIOGRAPH, 1 VIEW HISTORY: chest pain COMPARISON: 03/04/2017 FINDINGS: LUNGS: Clear. PLEURA: No pneumothorax or pleural fluid seen. CARDIOVASCULAR: No radiographic findings to suggest acute or significant cardiovascular disease. OSSEOUS STRUCTURES: No significant abnormalities. VISUALIZED UPPER ABDOMEN: Normal. OTHER FINDINGS: None. IMPRESSION: No active disease. No acute/significant interval changes.
[2018-04-10] MEDS: Simethicone 80 mg Chewtab PO SCH ×2 (12:40→19:06)
[2018-04-10 15:04] VITALS: RESP 20
--- NOTE | 2018-04-10 21:58 | CP.PCM.HP ---
Past Patient History - Infectious Disease Hx of Infectious Diseases: None - Past Medical History & Family History Past Medical History?: Yes - Past Social History Smoking Status: Never Smoked - CARDIAC Hx Hypercholesterolemia: Yes Hx Hypertension: Yes - MUSCULOSKELETAL/RHEUMATOLOGICAL Hx Falls: No - GASTROINTESTINAL Hx Gastrointestinal Disorders: Yes Hx Gastroesophageal Reflux: Yes Hx Irritable Bowel: Yes - PSYCHIATRIC Hx Anxiety: Yes Hx Substance Use: No - SURGICAL HISTORY Hx Surgeries: Yes Other/Comment: Abdominal hernia sx - ANESTHESIA Hx Anesthesia: Yes Hx Anesthesia Reactions: No Meds Allergies/Adverse Reactions: Allergies Allergy/AdvReac Type Severity Reaction Status Date / Time No Known Allergies Allergy Verified 04/10/18 08:23 Results - Vital Signs Recent Vital Signs: Last Vital Signs Temp 98.1 F 04/10/18 15:03 Pulse 60 04/10/18 19:14 Resp 20 04/10/18 15:03 BP 126/69 04/10/18 15:03 Pulse Ox 97 04/10/18 19:14 - Labs Result Diagrams: 04/10/18 09:19 04/10/18 09:19 Labs: Laboratory Results - last 24 hr 04/10/18 04/10/18 04/10/18 08:50 09:19 09:19 WBC 6.4 RBC 4.57 Hgb 14.2 Hct 41.8 MCV 91.3 MCH 31.0 MCHC 34.0 RDW 13.5 Plt Count 229 MPV 7.7 Neut % (Auto) 71.5 Lymph % (Auto) 13.9 L [place] % (Auto) 8.7 Eos % (Auto) 5.3 H Baso % (Auto) 0.6 Neut # (Auto) 4.6 Lymph # (Auto) 0.9 L [place] # (Auto) 0.6 Eos # (Auto) 0.3 Baso # (Auto) 0.0 Sodium 138 Potassium 5.1 Chloride 101 Carbon Dioxide 29 Anion Gap 13 BUN 9 Creatinine 0.8 Est GFR ( Amer) > 60 Est GFR (Non-Af Amer) > 60 POC Glucose (mg/dL) 127 H Random Glucose 129 H Calcium 9.4 Total Bilirubin 0.6 AST 15 L ALT 27 Alkaline Phosphatase 49 Troponin I < 0.0120 NT-Pro-B Natriuret Pep 78.4 Total Protein 6.5 Albumin 3.9 Globulin 2.6 Albumin/Globulin Ratio 1.5 Urine Color Urine Clarity Urine pH Ur Specific [place] Urine Protein Urine Glucose (UA) Urine Ketones Urine Blood Urine Nitrate Urine Bilirubin Urine Urobilinogen Ur Leukocyte Esterase Urine WBC (Auto) Urine RBC (Auto) 04/10/18 10:46 WBC RBC Hgb Hct MCV MCH MCHC RDW Plt Count MPV Neut % (Auto) Lymph % (Auto) [place] % (Auto) Eos % (Auto) Baso % (Auto) Neut # (Auto) Lymph # (Auto) [place] # (Auto) Eos # (Auto) Baso # (Auto) Sodium Potassium Chloride Carbon Dioxide Anion Gap BUN Creatinine Est GFR ( Amer) Est GFR (Non-Af Amer) POC Glucose (mg/dL) Random Glucose Calcium Total Bilirubin AST ALT Alkaline Phosphatase Troponin I NT-Pro-B Natriuret Pep Total Protein Albumin Globulin Albumin/Globulin Ratio Urine Color Yellow Urine Clarity Clear Urine pH 6.0 Ur Specific [place] 1.015 Urine Protein Negative Urine Glucose (UA) Normal Urine Ketones Trace Urine Blood Negative Urine Nitrate Negative Urine Bilirubin Negative Urine Urobilinogen Normal Ur Leukocyte Esterase Neg Urine WBC (Auto) 1 Urine RBC (Auto) < 1
[2018-04-10 22:08] LABS: CK-MB 0.75 ng/mL (0.0-3.38)
[2018-04-10] MEDS: Rosuvastatin Calcium 2.5 mg Tab PO SCH (23:03)
[2018-04-11 02:08] LABS: CK-MB 0.83 ng/mL (0.0-3.38)
--- NOTE | 2018-04-11 07:03 | HP ---
CHIEF COMPLAINT: Dizziness. HISTORY OF PRESENT ILLNESS: This is a 77-year-old male with a history of hypertension, hyperlipidemia, allergic rhinitis, osteoarthritis, anxiety, and mild depression, who is compliant with his diet, medication, and followup. In his usual state of health. The patient is ambulatory and independent in activities of daily living, compliant. The patient came in because, for the last almost a month as soon as he tries to stand up, he gets lightheaded, dizziness, feels weak. He did not feel like passing out. He denied any chest pain or palpitation. These episodes have been happening each time he stands up from sitting position and lying position. Has dizziness lasts for 2 to 3 minutes. He described dizziness and lightheaded feeling. He denies any nausea, vomiting, or diarrhea. He denies any history of polyuria, polydipsia, or polyphagia. He denies any history of hematuria or pyuria. He denies any history of sneezing and nasal congestion. He denies any history of nausea, vomiting, or visual changes. He denies any neck pain or headache. He has extensive knee, back, and hip pains. He denies any history of trauma, fall, or loss of consciousness. He denies any history of suture-like activity. PAST MEDICAL HISTORY: Hypertension, hyperlipidemia, and allergic rhinitis. SOCIAL HISTORY: Nonsmoker, nondrinker, nonEtoH user. CURRENT MEDICATIONS: Enalapril, Zocor, Protonix, Naprosyn, multivitamin, Amitiza, gabapentin, Lexapro, and Vasotec. PHYSICAL EXAMINATION: GENERAL: An elderly male in no acute distress. VITAL SIGNS: Blood pressure 132/68, pulse 69, respiratory rate 20, and temperature 98.4. SKIN: Mild turgor. No bruises. No purpura. No petechiae. HEENT: Atraumatic. Normocephalic. Negative pallor. Negative jaundice. Extraocular movements are intact. NECK: Supple. Flat neck vein. No JVD. CHEST WALL: Bilaterally symmetrical expansion. LUNGS: Clear. No rales. No rhonchi. CVS: S1 and S2 regular. No heave. No thrill. ABDOMEN: Soft and nontender. Bowel sounds are positive. RECTAL : Enlarged prostate. EXTREMITIES: Negative for clubbing, cyanosis, or edema. WING COMMANDER: Awake, alert, and oriented x3. Cranial nerves II through XII are normal. Power 5/5 x4. Plantars are downgoing. ASSESSMENT: 1. Dizziness. Rule out hypotension, dehydration. 2. Hypertension. 3. Hyperlipidemia. 4. Anxiety and depression. PLAN: Admit. The patient was given IV fluids, and IV fluids were later stopped because of the blood pressure. I will keep the patient's blood pressure medications on hold and observe his blood pressure to see if there is a possibility of white coat hypertension and obviate the need for antihypertensive therapy and admit detailed orders. The patient was seen and examined. Rah Gauthier MD
[2018-04-11] MEDS ORDERED: Influenza Vaccine 60 MCG/0.5 ML SYR (3 yr & up) IM ONE (10:00)
[2018-04-11] MEDS: Multiple Vitamins Tab PO SCH (10:23)
[2018-04-11] MEDS: Simethicone 80 mg Chewtab PO SCH ×3 (10:23→17:15)
[2018-04-11] MEDS: Enoxaparin 40 mg Syringe SC SCH (10:23)
--- NOTE | 2018-04-11 13:17 | VASCLAB ---
Date of service: 04/11/2018 PROCEDURE: Carotid Duplex Exam. HISTORY: Syncope COMPARISON: None available. TECHNIQUE: Grayscale and duplex Doppler evaluation of the cervical carotid and vertebral arteries were performed. The common carotid, carotid bifurcations and cervical Internal Carotid Artery (ICA) and proximal External Carotid Artery (ECA) were evaluated. The vertebral arteries were evaluated for gross patency and flow direction. Report prepared by Easton Ferreira, BS, RVT FINDINGS: RIGHT CAROTID ARTERIES: 1. Common Carotid Artery: No significant focal plaque formation of the right common carotid artery. Maximum Peak Systolic velocity: 70 cm/sec: End-diastolic velocity 7 cm/sec. 2. Carotid Bifurcation: plaque formation. Maximum Peak Systolic velocity: 53 cm/sec: End-diastolic velocity 8 cm/sec. 3. Internal Carotid Artery: Plaque description: 3.1. Proximal Segment: Peak systolic velocity 76 cm/sec: End-diastolic velocity 16 cm/sec - % stenosis 0-15% 3.2. Middle Segment: Peak systolic velocity 88 cm/sec: End-diastolic velocity 27 cm/sec - % stenosis 0-15% 3.3. Distal Segment: Peak systolic velocity 83 cm/sec: End-diastolic velocity 25 cm/sec - % stenosis 0-15% 4. External Carotid Artery: No significant focal plaque formation. Peak systolic velocity 115 cm/sec 5. ICA/CCA Ratio: 1.2 LEFT CAROTID ARTERIES: 1. Common Carotid Artery: No significant focal plaque formation of the left common carotid artery. Maximum Peak Systolic velocity: 89 cm/sec: End-diastolic velocity 15 cm/sec. 2. Carotid Bifurcation: plaque formation. Maximum Peak Systolic velocity: 71 cm/sec: End-diastolic velocity 15 cm/sec. 3. Internal Carotid Artery: Plaque description: 3.1. Proximal Segment: Peak systolic velocity 63 cm/sec: End-diastolic velocity 18 cm/sec - % stenosis 0-15% 3.2. Middle Segment: Peak systolic velocity 48 cm/sec: End-diastolic velocity 13 cm/sec - % stenosis 0-15% 3.3. Distal Segment: Peak systolic velocity 75 cm/sec: End-diastolic velocity 28 cm/sec - % stenosis 0-15% 4. External Carotid Artery: No significant focal plaque formation. Peak systolic velocity 104 cm/sec 5. ICA/CCA Ratio: 0.8 VERTEBRAL ARTERIES: 1. Right Vertebral Artery: The right vertebral artery flow direction is antegrade. 2. Left Vertebral Artery: The left vertebral artery flow direction is antegrade. OTHER FINDINGS: 1. Right Brachial Blood pressure: 140 mmHg. 2. Left Brachial Blood pressure: 132 mmHg. IMPRESSION: RIGHT: Duplex scan does not suggest hemodynamically significant stenosis of the right extracranial carotid arteries. LEFT: Duplex scan does not suggest hemodynamically significant stenosis of the left extracranial carotid arteries.
[2018-04-11] MEDS ORDERED: Dextrose 5%/0.45% NS 1,000 ML IV SCH (15:15)
[2018-04-11] MEDS: Rosuvastatin Calcium 2.5 mg Tab PO SCH (21:08)
--- NOTE | 2018-04-11 23:34 | CP.PCM.PN ---
Objective - Vital Signs/Intake and Output Vital Signs (last 24 hours): Temp Pulse Resp BP Pulse Ox 97.9 F 58 L 20 143/75 96 04/11/18 17:04 04/11/18 21:00 04/11/18 17:04 04/11/18 17:19 04/11/18 17:39 Intake and Output: 04/11/18 04/12/18 18:59 06:59 Intake Total 1300 Output Total 600 Balance 700 - Medications Medications: Current Medications Enoxaparin Sodium (Lovenox) 40 mg SC DAILY [facility] Last Admin: 04/11/18 10:23 Dose: 40 mg Escitalopram Oxalate (Lexapro) 5 mg PO [facility] Last Admin: 04/11/18 21:08 Dose: 5 mg Multivitamins (Hexavitamin) 1 tab PO DAILY [facility] Last Admin: 04/11/18 10:23 Dose: 1 tab Rosuvastatin Calcium (Crestor) 2.5 mg PO HS [facility] Last Admin: 04/11/18 21:08 Dose: 2.5 mg Simethicone (Mylicon Chew Tab) 80 mg PO TID [facility] Last Admin: 04/11/18 17:15 Dose: 80 mg - Labs Labs: 04/10/18 09:19 04/10/18 09:19
[2018-04-12 07:43] VITALS: O2SAT 96
[2018-04-12] MEDS: Enoxaparin 40 mg Syringe SC SCH (09:22)
[2018-04-12] MEDS: Simethicone 80 mg Chewtab PO SCH ×2 (09:22→14:02)
[2018-04-12] MEDS: Multiple Vitamins Tab PO SCH (09:22)
[2018-04-12 14:00] LABS: RBC 4.43 Mil/uL (4.40-5.90); WHITE BLOOD COUNT 6.7 K/uL (4.8-10.8)
[2018-04-12 14:01] LABS: BASO # 0.1 K/uL (0.0-0.2); BASO % 0.8 % (0.0-2.0); EOS # 0.6 K/uL (0.0-0.7); EOS % 8.4 % (0.0-4.0); LYMPH # 1.5 K/uL (1.0-4.3); LYMPH % 22.1 % (20.0-40.0); MEAN CELL VOLUME 90.8 fL (80.0-94.0); MEAN CORPUSCULAR HEMOGLOBIN 31.5 pg (27.0-31.0); MEAN CORPUSCULAR HGB CONC 34.7 g/dL (33.0-37.0); MEAN PLATELET VOLUME 8.3 fL (7.2-11.7); MONO # 0.6 K/uL (0.0-0.8); NEUT % 59.7 % (50.0-75.0); NRBC % 0.1 % (0.0-2.0); RED CELL DISTRIBUTION WIDTH 13.6 % (11.5-14.5)
[2018-04-12 14:14] LABS: ALB/GLOB RATIO 1.7 (1.0-2.1); ALT/SGPT 19 U/L (21-72); AST/SGOT 13 U/L (17-59); BLOOD UREA NITROGEN 12 mg/dL (9-20); CALCIUM 8.8 mg/dl (8.6-10.4); GFR NON-AFRICAN AMERICAN > 60
[2018-04-12 15:52] VITALS: PULSE 67
[2018-04-12 16:10] VITALS: BP 137/80; TEMP 97.5
--- NOTE | 2018-04-12 16:19 | CP.PCM.PN ---
Subjective - Date & Time of Evaluation Date of Evaluation: 04/12/18 Time of Evaluation: 16:19 Objective - Vital Signs/Intake and Output Vital Signs (last 24 hours): Temp Pulse Resp BP Pulse Ox 97.5 F L 67 20 137/80 96 04/12/18 15:00 04/12/18 15:51 04/12/18 15:00 04/12/18 15:00 04/12/18 16:14 Intake and Output: 04/12/18 04/12/18 06:59 18:59 Intake Total 1300 480 Output Total 600 Balance 700 480 - Medications Medications: Current Medications Enoxaparin Sodium (Lovenox) 40 mg SC DAILY [facility] Last Admin: 04/12/18 09:22 Dose: 40 mg Escitalopram Oxalate (Lexapro) 5 mg PO HS [facility] Last Admin: 04/11/18 21:08 Dose: 5 mg Multivitamins (Hexavitamin) 1 tab PO DAILY [facility] Last Admin: 04/12/18 09:22 Dose: 1 tab Rosuvastatin Calcium (Crestor) 2.5 mg PO HS [facility] Last Admin: 04/11/18 21:08 Dose: 2.5 mg Simethicone (Mylicon Chew Tab) 80 mg PO TID [facility] Last Admin: 04/12/18 14:02 Dose: 80 mg - Labs Labs: 04/12/18 13:55 04/12/18 13:55 Assessment and Plan - Assessment and Plan (Free Text) Assessment: FOLLOW UP WITH DR CUI IN HIS OFFICE ---CALL FOR APPOINTMENT FOLLOW UP WITH DR CRUZ IN HIS OFFICE ---CALL FOR APPOINTMENT CONTINUE HOME MEDICATION ACTIVITY TOLERATED CALL DR CUI OR GO TO THE EMERGENCY ROOM IF SYMPTOMS RETURN OR WORSENING
--- NOTE | 2018-04-12 22:10 | CP.PCM.DIS ---
Provider - Provider Date of Admission: 04/10/18 10:33 Attending physician: Rah Gauthier MD Hospital Course - Lab Results Lab Results: Most Recent Lab Values WBC 6.7 K/uL (4.8-10.8) 04/12/18 13:55 RBC 4.43 Mil/uL (4.40-5.90) 04/12/18 13:55 Hgb 14.0 g/dL (12.0-18.0) 04/12/18 13:55 Hct 40.2 % (35.0-51.0) 04/12/18 13:55 MCV 90.8 fL (80.0-94.0) 04/12/18 13:55 MCH 31.5 pg (27.0-31.0) H 04/12/18 13:55 MCHC 34.7 g/dL (33.0-37.0) 04/12/18 13:55 RDW 13.6 % (11.5-14.5) 04/12/18 13:55 Plt Count 229 K/uL (130-400) 04/12/18 13:55 MPV 8.3 fL (7.2-11.7) 04/12/18 13:55 Neut % (Auto) 59.7 % (50.0-75.0) 04/12/18 13:55 Lymph % (Auto) 22.1 % (20.0-40.0) 04/12/18 13:55 [place] % (Auto) 9.0 % (0.0-10.0) 04/12/18 13:55 Eos % (Auto) 8.4 % (0.0-4.0) H 04/12/18 13:55 Baso % (Auto) 0.8 % (0.0-2.0) 04/12/18 13:55 Neut # (Auto) 4.0 K/uL (1.8-7.0) 04/12/18 13:55 Lymph # (Auto) 1.5 K/uL (1.0-4.3) 04/12/18 13:55 [place] # (Auto) 0.6 K/uL (0.0-0.8) 04/12/18 13:55 Eos # (Auto) 0.6 K/uL (0.0-0.7) 04/12/18 13:55 Baso # (Auto) 0.1 K/uL (0.0-0.2) 04/12/18 13:55 Sodium 137 mmol/L (132-148) 04/12/18 13:55 Potassium 4.4 mmol/L (3.6-5.2) 04/12/18 13:55 Chloride 102 mmol/L (98-107) 04/12/18 13:55 Carbon Dioxide 25 mmol/L (22-30) 04/12/18 13:55 Anion Gap 15 (10-20) 04/12/18 13:55 BUN 12 mg/dL (9-20) 04/12/18 13:55 Creatinine 0.7 mg/dL (0.8-1.5) L 04/12/18 13:55 Est GFR ( Amer) > 60 04/12/18 13:55 Est GFR (Non-Af Amer) > 60 04/12/18 13:55 POC Glucose (mg/dL) 127 mg/dL (65-110) H 04/10/18 08:50 Random Glucose 122 mg/dL (75-110) H 04/12/18 13:55 Calcium 8.8 mg/dl (8.6-10.4) 04/12/18 13:55 Total Bilirubin 0.3 mg/dL (0.2-1.3) 04/12/18 13:55 AST 13 U/L (17-59) L 04/12/18 13:55 ALT 19 U/L (21-72) L D 04/12/18 13:55 Alkaline Phosphatase 50 U/L (38-126) 04/12/18 13:55 Total Creatine Kinase 57 U/L (55-170) 04/11/18 01:45 CK-MB (Mass) 0.83 ng/mL (0.0-3.38) 04/11/18 01:45 Troponin I < 0.0120 ng/mL (0.00-0.120) 04/11/18 01:45 NT-Pro-B Natriuret Pep 78.4 pg/mL (0-900) 04/10/18 09:19 Total Protein 6.4 g/dL (6.3-8.3) 04/12/18 13:55 Albumin 4.0 g/dL (3.5-5.0) 04/12/18 13:55 Globulin 2.4 gm/dL (2.2-3.9) 04/12/18 13:55 Albumin/Globulin Ratio 1.7 (1.0-2.1) 04/12/18 13:55 Urine Color Yellow (YELLOW) 04/10/18 10:46 Urine Clarity Clear (Clear) 04/10/18 10:46 Urine pH 6.0 (5.0-8.0) 04/10/18 10:46 Ur Specific Anna 1.015 (1.003-1.030) 04/10/18 10:46 Urine Protein Negative mg/dL (NEGATIVE) 04/10/18 10:46 Urine Glucose (UA) Normal mg/dL (Normal) 04/10/18 10:46 Urine Ketones Trace mg/dL (NEGATIVE) 04/10/18 10:46 Urine Blood Negative (NEGATIVE) 04/10/18 10:46 Urine Nitrate Negative (NEGATIVE) 04/10/18 10:46 Urine Bilirubin Negative (NEGATIVE) 04/10/18 10:46 Urine Urobilinogen Normal mg/dL (0.2-1.0) 04/10/18 10:46 Ur Leukocyte Esterase Neg Nivia/uL (Negative) 04/10/18 10:46 Urine WBC (Auto) 1 /hpf (0-5) 04/10/18 10:46 Urine RBC (Auto) < 1 /hpf (0-3) 04/10/18 10:46 Discharge Plan - Follow Up Plan Condition: GUARDED Disposition: HOME/ ROUTINE Instructions: Heart Healthy Diet, Syncope (Fainting) (DC), Preventing Falls, Dizziness, Nonvertigo, (DC) Additional Instructions: FOLLOW UP WITH DR GAUTHIER IN HIS OFFICE ---CALL FOR APPOINTMENT FOLLOW UP WITH DR CRUZ IN HIS OFFICE ---CALL FOR APPOINTMENT CONTINUE HOME MEDICATION ACTIVITY TOLERATED CALL DR GAUTHIER OR GO TO THE EMERGENCY ROOM IF SYMPTOMS RETURN OR WORSENING Referrals: Rah Gauthier MD [Staff Provider] -
--- NOTE | 2018-04-14 06:32 | CARD ---
APPROVED REPORT Date of service: 04/11/2018 EXAM: Two-dimensional and M-mode echocardiogram with Doppler and color Doppler. Other Information Quality : GoodRhythm : INDICATION Dizziness and Vertigo Syncope RISK FACTORS Hypertension 2D DIMENSIONS IVSd0.9 (0.7-1.1cm)LVDd4.3 (3.9-5.9cm) PWd1.0 (0.7-1.1cm)LA Chaudt63 (18-58mL) LVDs3.0 (2.5-4.0cm)FS (%) 31.7 % LVEF (%)59.9 (>50%)LVEF ([place]'s)64.51 % M-Mode DIMENSIONS Left Atrium (MM)4.03 (2.5-4.0cm)IVSd0.85 (0.7-1.1cm) Aortic Root3.96 (2.2-3.7cm)LVDd5.38 (4.0-5.6cm) Aortic Cusp Exc.2.55 (1.5-2.0cm)PWd0.90 (0.7-1.1cm) FS (%) 44 %LVDs3.04 (2.0-3.8cm) LVEF (%)74 (>50%) Aortic Valve AI P 1/2 [id number] Mitral Valve MV E Ogtrgatu36.2cm/sMV A Dcfdnmip16.3cm/sE/A ratio0.8 TDI Lateral E' Peak V7.64cm/sMedial E' Peak V6.83cm/sE/Lateral E'7.5 E/Medial E'8.4 Tricuspid Valve TR Peak [id number]/sTR Peak Gr.[id number] LEFT VENTRICLE The left ventricle is normal size. There is normal left ventricular wall thickness. Left ventricle systolic function is normal. The Ejection Fraction is 65-70%. There is normal LV segmental wall motion. Tissue Doppler imaging reveals abnormal left ventricular diastolic dysfunction. RIGHT VENTRICLE The right ventricle is normal size. There is normal right ventricular wall thickness. The right ventricular systolic function is normal. ATRIA The left atrium is mildly dilated. The right atrium size is normal. The interatrial septum is intact with no evidence for an atrial septal defect. AORTIC VALVE The aortic valve is normal in structure. There is mild to moderate aortic regurgitation. There is no aortic valvular stenosis. There is no aortic valvular vegetation. MITRAL VALVE The mitral valve is normal in structure. There is no evidence of mitral valve prolapse. There is no mitral valve stenosis. Mitral regurgitation is trace. TRICUSPID VALVE The tricuspid valve is normal in structure. There is mild tricuspid regurgitation. Right ventricular systolic pressure is estimated at less than 30 mmHg. There is no pulmonary hypertension. PULMONIC VALVE The pulmonic valve is not well visualized. There is mild pulmonic valvular regurgitation. GREAT VESSELS The aortic root is normal in size. PERICARDIAL EFFUSION There is no significant pericardial effusion. <Conclusion> Left ventricle systolic function is normal. The Ejection Fraction is 65-70%. Diastolic dysfunction. There is mild to moderate aortic regurgitation. Mitral regurgitation is trace. There is mild tricuspid regurgitation. There is no pulmonary hypertension. There is mild pulmonic valvular regurgitation.
[2018-04-14] MEDS ORDERED: Influenza Virus Vaccine 45 mcg/0.5 ml Syr (36 months - 7 yrs) IM ONE (10:00)
--- NOTE | 2018-04-14 10:25 | DS ---
CHIEF COMPLAINT: Dizziness. DISCHARGE DIAGNOSES: 1. Dizziness due to antihypertensive, rule out white coat hypertension. 2. Anxiety. 3. Osteoarthritis. HOSPITAL COURSE: This is a 77-year-old [place] male with a history of osteoarthritis, hypertension, anxiety, stress, and gastritis. He is compliant with his diet, medication and followup. He came in because of dizziness, difficulty standing up and walking. The patient was admitted to the floor, found to have low blood pressure which responded to IV normal saline. Subsequently, the patient underwent a carotid Doppler which is negative. The patient underwent an echo, result is pending. The patient is for discharge. CONDITION UPON DISCHARGE: The patient's condition is stable upon discharge. The patient will be followed up as outpatient. He was seen by Dr. Todd, Cardiology. PHYSICAL EXAMINATION: VITAL SIGNS: BP 137/80, pulse 60, respiratory rate 20, temperature 97.5. PLAN: Discharge the patient. Rah Gauthier MD
== END 2018-04-12 16:52 | disposition home or self-care (01) ==
LOC: C.ER 08:20 → C.9E 10:33 → C.5S 13:36
PROVIDERS: ADMIT Internal Medicine; ATTEND Internal Medicine
DX: R55 Syncope and collapse (principal); R42 Dizziness and giddiness; E78.00 Pure hypercholesterolemia, unspecified; E78.5 Hyperlipidemia, unspecified; I10 Essential (primary) hypertension; K21.9 Gastro-esophageal reflux disease without esophagitis; F32.9 Major depressive disorder, single episode, unspecified; F41.9 Anxiety disorder, unspecified
CPT/HCPCS: 36415; 71045; 80053; 81001; 82948; 83880; 84484; 85025; 93306; 93880; 97116; 97162; 99285; G0378; G8978; G8979; J1650; J7030; J7042